=== PATIENT | female | born 1985 | race Caucasian/White ===

== ENCOUNTER 2018-09-22 07:50 | Emergency (ER) | payer OTHER ==
[~2018-09-22] VITALS: Ht 165.1 cm; Wt 72.6 kg
[2018-09-22 08:00] VITALS: BP 120/66
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
--- NOTE | 2018-09-22 08:35 | NUR ---
dr jain evaluating pt at bedside.
[2018-09-22] MEDS ORDERED: IBUPROFEN 800 MG TAB PO ONE (08:40)
--- NOTE | 2018-09-22 08:44 | NUR ---
PT TAKEN TO RADIOLOGY VIA WHEELCHAIR.
[2018-09-22] MEDS ORDERED: BUPR300T70 PO (08:48)
[2018-09-22] MEDS ORDERED: BUPR-160 PO (08:48)
[2018-09-22] MEDS ORDERED: LAM200 PO (08:49)
[2018-09-22] MEDS ORDERED: GUAN1TAB6 PO (08:49)
[2018-09-22] MEDS ORDERED: QUET100T PO (08:49)
--- NOTE | 2018-09-22 08:53 | NUR ---
PT BACK FROM RADIOLOGY.
[2018-09-22 09:41] VITALS: BP 123/70
== END 2018-09-22 09:40 | disposition home or self-care (01) ==
LOC: MED 07:50
DX: S16.1XXA Strain of muscle, fascia and tendon at neck level, initial encounter (principal); R03.0 Elevated blood-pressure reading, without diagnosis of hypertension; F32.9 Major depressive disorder, single episode, unspecified; F41.9 Anxiety disorder, unspecified; Z79.899 Other long term (current) drug therapy; Z88.8 Allergy status to other drugs, medicaments and biological substances; V89.2XXA Person injured in unspecified motor-vehicle accident, traffic, initial encounter; Y93.89 Activity, other specified; Y92.411 Interstate highway as the place of occurrence of the external cause; Y99.8 Other external cause status
CPT/HCPCS: 72040; 99283